=== PATIENT | male | born 1985 | race Caucasian/White ===

== ENCOUNTER 2017-06-06 07:23 | Emergency (ER) | payer OTHER ==
[~2017-06-06] VITALS: Ht 188 cm; Wt 136.1 kg
[~2017-06-06 07:23] MED LIST: KEFLEX500 M1 PO
[2017-06-06 07:27] VITALS: BP 123/81
--- NOTE | 2017-06-06 07:30 | ED ANIMAL BITE/WOUND CHECK ---
History of Present Illness General Chief Complaint: Suture Removal/Wound Recheck Stated Complaint: SUTURE REMOVAL Source: patient, old records Exam Limitations: no limitations Vital Signs & Intake/Output Vital Signs & Intake/Output Vital Signs Date Time Temp Pulse Resp B/P B/P Pulse O2 O2 Flow FiO2 Mean Ox Delivery Rate 06/06 0727 97.0 76 20 123/81 99 Room Air Allergies Coded Allergies: NO KNOWN ALLERGIES (07/12/13) Reconcile Medications Cephalexin (Keflex) 500 MG CAPSULE 1 CAP PO TID PRN PPX Triage Note: SUTURE REMOVAL RIGHT FINGERS Triage Nurses Notes Reviewed? yes HPI: Patient presents for suture removal from his right hand. Patient only complaint is continued pins and needles feeling as well as swallowing his right pointer finger. He says the symptoms are slightly improving. He can feel his finger and move a little bit and it is better than it was but the pins and needles and swelling are still present. There are no fevers or chills. There is no drainage. Past History Travel History Traveled to [place] past 21 day No Medical History Any Pertinent Medical History? none Surgical History Surgical History: none Psychosocial History What is your primary language Honduran Tobacco Use: Never used ETOH Use: occasional use Illicit Drug Use: denies illicit drug use Family History Hx Contributory? No Review of Systems Review of Systems Constitutional: Reports: no symptoms. Respiratory: Reports: no symptoms. Cardiovascular: Reports: no symptoms. Musculoskeletal: Reports: see HPI. Neurological/Psychological: Reports: no symptoms. Immunologic/Allergic: Reports: no symptoms. Physical Exam Physical Exam General Appearance: well developed/nourished, alert Head: atraumatic, normal appearance Eyes: Bilateral: PERRL, EOMI. Ears, Nose, Throat: normal pharynx, normal ENT inspection, hearing grossly normal Extremities: SUTURES HEALING WELL AND READY TO COME OUT, CAP REFIL <2 SEC, NORMAL SENSATION Neurologic/Psych: no motor/sensory deficits, awake, alert, oriented x 3, normal gait, normal mood/affect Progress Differential Diagnosis: SUTURE REMOVAL Plan of Care: SUTURE REMOVAL AND HAND FOLLOW UP Departure Departure Disposition: HOME OR SELF CARE Condition: Stable Clinical Impression Primary Impression: Visit for suture removal Referrals: Héctor MURRIETA,Ulises Santiago (PCP/Family) Reymundo Rizvi MD Additional Instructions: FOLLOW UP WITH DR. RIZVI WITH FEELING DOESN'T IMPROVE IN YOUR FIRST FINGER RETURN TO THE ER FOR ANY CONCERNS Departure Forms: Customer Survey General Discharge Information
== END 2017-06-06 07:50 ==
LOC: ERH 07:23
DX: S61.210A Laceration without foreign body of right index finger without damage to nail, initial encounter (principal); X58.XXXA Exposure to other specified factors, initial encounter; Y92.9 Unspecified place or not applicable; Y93.9 Activity, unspecified
CPT/HCPCS: 99281